=== PATIENT | female | born 1990 | race Caucasian/White ===

== ENCOUNTER 2018-07-24 02:47 | Emergency (ER) | payer SELFPAY ==
[~2018-07-24] VITALS: Ht 152.4 cm; Wt 73.5 kg
[2018-07-24 03:23] LABS: BASOPHILS % (AUTO) 0 % (0-10); EOSINOPHILS # (AUTO) 0.1 10^3/uL (0.0-0.3); EOSINOPHILS % (AUTO) 1 % (0-10); HEMATOCRIT 40 % (35-52); HEMOGLOBIN 13.6 G/DL (11.5-16.0); LYMPHOCYTES # (AUTO) 3.3 X 10^3 (1.0-4.0); LYMPHOCYTES % (AUTO) 33 % (12-44); MEAN CORPUSCULAR HEMOGLOBIN 29 PG (25-34); MEAN CORPUSCULAR HGB CONC 34 G/DL (32-36); MEAN CORPUSCULAR VOLUME 87 FL (80-99); MEAN PLATELET VOLUME 8.6 FL (7.4-10.4); MONOCYTES # (AUTO) 0.7 X 10^3 (0.0-1.0); MONOCYTES % (AUTO) 7 % (0-12); NEUTROPHILS # (AUTO) 5.9 X 10^3 (1.8-7.8); NEUTROPHILS % (AUTO) 59 % (42-75); PLATELET COUNT 370 10^3/uL (130-400); RED CELL DISTRIBUTION WIDTH 12.6 % (10.0-14.5)
[2018-07-24 03:25] LABS: BILIRUBIN,URINE NEGATIVE (NEGATIVE); CLARITY,URINE SLIGHTLY CLOUDY; COLOR,URINE AMBER; GLUCOSE, URINE (UA) NEGATIVE (NEGATIVE); KETONES,URINE 1+ (NEGATIVE); LEUKOCYTE ESTERASE ,URINE 1+ (NEGATIVE); NITRITE,URINE NEGATIVE (NEGATIVE); PH,URINE 6 (5-9); PROTEIN,URINE 3+ (NEGATIVE); UROBILINOGEN,URINE 1 MG/DL (NORMAL)
--- NOTE | 2018-07-24 03:41 | ED GU-Female ---
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 She had a positive test on July 19. She had a transvaginal ultrasound performed yesterday at [facility]. She was told she had a viable intrauterine at about 6 weeks gestational age. She received referrals to physicians for her obstetrical care. The discomfort and cramping has eased. She presents pictures of blood clots in the toilet. She is a [employer] student and uses the [employer]. Allergies and Home Medications Allergies Coded Allergies: No Known Drug Allergies (Unverified , 07/24/18) Patient Home Medication List Home Medication List Reviewed: Yes Review of Systems Review of Systems Constitutional: no symptoms reported EENTM: no symptoms reported Respiratory: no symptoms reported Cardiovascular: no symptoms reported Gastrointestinal: no symptoms reported Genitourinary: see HPI : Yes Musculoskeletal: no symptoms reported Skin: no symptoms reported Psychiatric/Neurological: No Symptoms Reported Endocrine: No Symptoms Reported Hematologic/Lymphatic: No Symptoms Reported Past Bwlzlcm-Lwnamn-Lmisgm Hx Past Med/Social Hx: Reviewed and Corrections made Patient Social History Alcohol Use: Denies Use Recreational Drug Use: No 2nd Hand Smoke Exposure: No Recent Foreign Travel: No Contact w/Someone Who Travel: No Recent Infectious Disease Expo: No Recent Hopitalizations: No Seasonal Allergies Seasonal Allergies: No Past Medical History Surgeries: Yes Ear Surgery Respiratory: No Cardiac: No Neurological: No : Yes Last Menstrual Period: May 28, 2018 Hx : 1 Genitourinary: No Gastrointestinal: No Musculoskeletal: No Endocrine: No HEENT: No Cancer: No Psychosocial: No Integumentary: No Blood Disorders: No Physical Exam Vital Signs Vital Signs - First Documented 07/24/18 03:06 Temp 98.4 Pulse 95 Resp 18 B/P (MAP) 128/90 (103) Capillary Refill : Less Than 3 Seconds Height, Weight, BMI Height: 5'0" Weight: 162lbs. oz. 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, no motor/sensory deficits, alert, normal mood/affect, oriented x 3 Skin: normal color, warm/dry Progress/Results/Core Measures Suspected Sepsis Recent Fever Within 48 Hours: No Infection Criteria Present: Suspected New Infection New/Unexplained Altered Menta: No Sepsis Screen: No Definite Risk SIRS Temperature:98.4 Pulse: 95 Respiratory Rate: 18 Laboratory Tests 07/24/18 03:16: White Blood Count 10.0 Blood Pressure 128 /90 Mean: 103 Laboratory Tests 07/24/18 03:16: Platelet Count 370 Results/Orders Lab Results Laboratory Tests Test 07/24/18 03:16 07/24/18 03:20 Range/Units White Blood Count 10.0 4.3-11.0 10^3/uL Red Blood Count 4.66 4.35-5.85 10^6/uL Hemoglobin 13.6 11.5-16.0 G/DL Hematocrit 40 35-52 % Mean Corpuscular Volume 87 80-99 FL Mean Corpuscular Hemoglobin 29 25-34 PG Mean Corpuscular Hemoglobin Concent 34 32-36 G/DL Red Cell Distribution Width 12.6 10.0-14.5 % Platelet Count 370 130-400 10^3/uL Mean Platelet Volume 8.6 7.4-10.4 FL Neutrophils (%) (Auto) 59 42-75 % Lymphocytes (%) (Auto) 33 12-44 % Monocytes (%) (Auto) 7 0-12 % Eosinophils (%) (Auto) 1 0-10 % Basophils (%) (Auto) 0 0-10 % Neutrophils # (Auto) 5.9 1.8-7.8 X 10^3 Lymphocytes # (Auto) 3.3 1.0-4.0 X 10^3 Monocytes # (Auto) 0.7 0.0-1.0 X 10^3 Eosinophils # (Auto) 0.1 0.0-0.3 10^3/uL Basophils # (Auto) 0.0 0.0-0.1 10^3/uL Human Chorionic Gonadotropin, Quant 8567 H <5 MIU/ML Urine Color MARIELA H Urine Clarity SLIGHTLY CLOUDY Urine pH 6 5-9 Urine Specific [place] 1.025 H 1.016-1.022 Urine Protein 3+ H NEGATIVE Urine Glucose (UA) NEGATIVE NEGATIVE Urine Ketones 1+ H NEGATIVE Urine Nitrite NEGATIVE NEGATIVE Urine Bilirubin NEGATIVE NEGATIVE Urine Urobilinogen 1 NORMAL MG/DL Urine Leukocyte Esterase 1+ H NEGATIVE Urine RBC (Auto) 5+ H NEGATIVE Urine RBC TNTC H /HPF Urine WBC NONE /HPF Urine Squamous Epithelial Cells RARE /HPF Urine Crystals NONE /LPF Urine Bacteria TRACE /HPF Urine Casts NONE /LPF Urine Mucus NEGATIVE /LPF Urine Culture Indicated NO My Orders Orders - GILMA RICH MD Cbc With Automated Diff (07/24/18 03:10) Hcg,Quantitative (07/24/18 03:10) Ua Culture If Indicated (07/24/18 03:10) Abo Rh Type (07/24/18 03:10) Vital Signs/I&O 07/24/18 03:06 Temp 98.4 Pulse 95 Resp 18 B/P (MAP) 128/90 (103) Capillary Refill : Less Than 3 Seconds Blood Pressure Mean: 103 Progress Note : Time: 04:29 Progress Note Labs and hCG level were appropriate. Patient was given an outpatient order form for ultrasound later this morning. Results to be called to me. See discharge instructions. Departure Impression Primary Impression: Vaginal bleeding affecting early Additional Impression: Pelvic cramping Disposition: 01 HOME, SELF-CARE Condition: Improved Departure-Patient Inst. Decision time for Depature: 04:25 Referrals: NO,LOCAL PHYSICIAN (PCP/Family) Primary Care Physician Patient Instructions: Threatened Miscarriage Add. Discharge Instructions: For pain you may take Tylenol (acetaminophen) up to 1000 mg every 6 hours as needed. Return to the hospital at 7:00 for your ultrasound. Bring the ultrasound order with you. Need to establish with an obstetrical provider as soon as possible. Please call today to make an appointment. All discharge instructions reviewed with patient and/or family. Voiced understanding. GILMA RICH MD July 24, 2018 03:41
[2018-07-24 03:59] LABS: BACTERIA,URINE TRACE /HPF; RBC,URINE TNTC /HPF; SQUAMOUS EPITHELIAL CELL,UR RARE /HPF
--- NOTE | 2018-07-24 04:27 | NUR ---
PT TO DISCHARGE HOME, PT HAVING SCANT AMOUNT OF VAGINAL BLEEDING, PT DENIES ANY NEEDS OR C/O AT THIS TIME, PT SHOWS NO S/S OF DISTRESS, VS ASSESSED AND STABLE
[2018-07-24 04:35] VITALS: BP 120/88
== END 2018-07-24 04:37 | disposition home or self-care (01) ==
LOC: ER 02:51
DX: O20.9 Hemorrhage in early pregnancy, unspecified (principal); Z3A.01 Less than 8 weeks gestation of pregnancy
CPT/HCPCS: 36415; 81000; 84702; 85025; 86900; 86901; 99282

== ENCOUNTER → 2018-07-24 | Outpatient (CLI) | payer SELFPAY ==
--- NOTE | 2018-07-24 09:16 | Diagnostic Imaging Report ---
Indication: Vaginal bleeding. There is an intrauterine gestational sac containing a pole. Bulger-rump length measurement is 6 mm consistent with 6 weeks 3 days. heart rate was recorded at 115 beats per minute. However, there is a very large gerri-gestational sac hemorrhage measuring 4.2 x 2.6 x 2.3 cm. The ovaries were not visualized. No adnexal mass or free fluid is seen. Impression: Single live IUP 6 weeks 3 days gestational age with estimated date of confinement sonographically of 03/16/2019. Note is made of a large subchorionic hemorrhage. Dictated by: Dictated on workstation # [id number]
== END ==
LOC: RAD 07:09
PROVIDERS: ATTEND Family Medicine
DX: O20.9 Hemorrhage in early pregnancy, unspecified (principal); Z3A.00 Weeks of gestation of pregnancy not specified
CPT/HCPCS: 76817

== ENCOUNTER → 2019-04-15 | Outpatient (CLI) | payer OTHER ==
--- NOTE | 2019-04-15 16:08 | Diagnostic Imaging Report ---
PROCEDURE: MRI left joint lower extremity without contrast. TECHNIQUE: Multiplanar, multisequence non contrast-enhanced MRI of the left lower extremity was accomplished. INDICATION: Left knee pain. COMPARISON: None. FINDINGS: No acute fracture is seen in the left knee. Alignment appears normal. No significant joint effusion is seen. The articular cartilage in the patellofemoral compartment demonstrates no full-thickness defects. The articular cartilage in the medial and lateral compartments demonstrates no full-thickness defects. The medial and lateral menisci appear intact. There is low signal throughout the coronal STIR sequence. The anterior and posterior cruciate ligaments are intact. The medial collateral ligament and the lateral collateral ligamentous complex are intact. The extensor mechanism is intact. The medial and lateral retinacula are intact. The soft tissues about the left knee demonstrate no acute abnormality. IMPRESSION: 1. No meniscus or ligament tear is seen in the left knee. Dictated by: Dictated on workstation # [id number]
== END ==
LOC: RAD 14:42
PROVIDERS: ATTEND Nurse Practitioner
DX: S83.262A Peripheral tear of lateral meniscus, current injury, left knee, initial encounter (principal); X58.XXXA Exposure to other specified factors, initial encounter
CPT/HCPCS: 73721

== ENCOUNTER → 2019-04-19 | Outpatient (CLI) | payer OTHER ==
[2019-04-19 14:13] LABS: BASOPHILS % (AUTO) 0 % (0-10); EOSINOPHILS # (AUTO) 0.3 10^3/uL (0.0-0.3); EOSINOPHILS % (AUTO) 4 % (0-10); HEMATOCRIT 41 % (35-52); HEMOGLOBIN 13.3 G/DL (11.5-16.0); LYMPHOCYTES % (AUTO) 29 % (12-44); MEAN CORPUSCULAR HEMOGLOBIN 29 PG (25-34); MEAN CORPUSCULAR HGB CONC 32 G/DL (32-36); MEAN CORPUSCULAR VOLUME 91 FL (80-99); MEAN PLATELET VOLUME 8.8 FL (7.4-10.4); MONOCYTES # (AUTO) 0.4 X 10^3 (0.0-1.0); MONOCYTES % (AUTO) 5 % (0-12); NEUTROPHILS # (AUTO) 4.3 X 10^3 (1.8-7.8); NEUTROPHILS % (AUTO) 61 % (42-75); PLATELET COUNT 346 10^3/uL (130-400); RED CELL DISTRIBUTION WIDTH 12.7 % (10.0-14.5)
== END ==
LOC: LAB 13:59
PROVIDERS: ATTEND Nurse Practitioner Family
DX: A38.9 Scarlet fever, uncomplicated (principal); M79.672 Pain in left foot; M25.40 Effusion, unspecified joint
CPT/HCPCS: 36415; 85025; 86060; 86141

== ENCOUNTER 2020-03-19 12:48 | Emergency (ER) | payer OTHER ==
[~2020-03-19] VITALS: Ht 157 cm; Wt 72.0 kg
[2020-03-19] MEDS ORDERED: NS IV 1000 ML 1,000 ML IV SCH (13:15)
[2020-03-19] MEDS ORDERED: KETOROLAC 30 MG/ML VIAL IVP ONE (13:15)
--- NOTE | 2020-03-19 13:16 | ED Abdominal Pain ---
General Chief Complaint: Abdominal/GI Problems Stated Complaint: ABD PAIN Nursing Triage Note: Pt here with R. side abd pain. Seen at [employer] [facility] this am and referred here for further eval. Pt has vomited x 1 today and states she feels like she needs to urinate but can't. Last urination was within an hour. Sepsis Screen: No Definite Risk Source of Information: Patient Exam Limitations: No Limitations History of Present Illness Date Seen by Provider: Mar 19, 2020 Time Seen by Provider: 13:05 Initial Comments [facility] to ER from [employer] [facility] where she presented with right lower quadrant abdominal pain right CVA tenderness along with nausea vomiting and diarrhea that began this morning. No fevers or chills but she does feel the urge to urinate but is unable to do so. Timing/Duration: 4-6 Hours Severity/Quality: Moderate Location: RLQ Radiation: No Radiation Activities at Onset: None Associated Symptoms: Denies Symptoms Allergies and Home Medications Allergies Coded Allergies: ceftriaxone (Verified Allergy, Mild, Rash, 07/24/18) Patient Home Medication List Home Medication List Reviewed: Yes Review of Systems Review of Systems Constitutional: see HPI EENTM: No Symptoms Reported Respiratory: No Symptoms Reported Cardiovascular: No Symptoms Reported Gastrointestinal: See HPI Genitourinary: No Symptoms Reported Musculoskeletal: no symptoms reported Skin: no symptoms reported Psychiatric/Neurological: No Symptoms Reported Endocrine: No Symptoms Reported Hematologic/Lymphatic: No Symptoms Reported Past Tndmipn-Hcikuv-Ttbdsg Hx Patient Social History 2nd Hand Smoke Exposure: No Recent Infectious Disease Expo: No Recent Hopitalizations: No Seasonal Allergies Seasonal Allergies: No Past Medical History Surgeries: Yes Ear Surgery Respiratory: No Cardiac: No Neurological: No : No Last Menstrual Period: Mar 11, 2020 Genitourinary: No Gastrointestinal: No Musculoskeletal: No Endocrine: No HEENT: No Cancer: No Psychosocial: No Integumentary: No Blood Disorders: No Physical Exam Vital Signs Vital Signs - First Documented 03/19/20 13:00 Temp 36.9 Pulse 72 Resp 18 B/P (MAP) 109/75 (86) Pulse Ox 97 O2 Delivery Room Air Capillary Refill : Less Than 3 Seconds Height/Weight/BMI Height: 5'0" Weight: 162lbs. oz. [id number]; 29.00 BMI Method:Actual General Appearance: WD/WN, no apparent distress HEENT: PERRL/EOMI, normal ENT inspection Respiratory: no respiratory distress, no accessory muscle use Cardiovascular: regular rate, rhythm, no murmur Gastrointestinal: normal bowel sounds, soft, tenderness Extremities: normal range of motion, non-tender Neurologic/Psychiatric: alert, normal mood/affect, oriented x 3 Skin: normal color, warm/dry Progress/Results/Core Measures Results/Orders Lab Results Laboratory Tests Test 03/19/20 13:17 Range/Units White Blood Count 8.2 4.3-11.0 10^3/uL Red Blood Count 4.70 3.80-5.11 10^6/uL Hemoglobin 13.6 11.5-16.0 g/dL Hematocrit 43 35-52 % Mean Corpuscular Volume 92 80-99 fL Mean Corpuscular Hemoglobin 29 25-34 pg Mean Corpuscular Hemoglobin Concent 32 32-36 g/dL Red Cell Distribution Width 11.8 10.0-14.5 % Platelet Count 354 130-400 10^3/uL Mean Platelet Volume 8.8 L 9.0-12.2 fL Immature Granulocyte % (Auto) 0 % Neutrophils (%) (Auto) 61 42-75 % Lymphocytes (%) (Auto) 32 12-44 % Monocytes (%) (Auto) 6 0-12 % Eosinophils (%) (Auto) 1 0-10 % Basophils (%) (Auto) 1 0-10 % Neutrophils # (Auto) 5.0 1.8-7.8 10^3/uL Lymphocytes # (Auto) 2.6 1.0-4.0 10^3/uL Monocytes # (Auto) 0.5 0.0-1.0 10^3/uL Eosinophils # (Auto) 0.1 0.0-0.3 10^3/uL Basophils # (Auto) 0.1 0.0-0.1 10^3/uL Immature Granulocyte # (Auto) 0.0 0.0-0.1 10^3/uL Urine Color YELLOW Urine Clarity CLEAR Urine pH 5.5 5-9 Urine Specific [place] >=1.030 1.016-1.022 Urine Protein NEGATIVE NEGATIVE Urine Glucose (UA) NEGATIVE NEGATIVE Urine Ketones TRACE H NEGATIVE Urine Nitrite NEGATIVE NEGATIVE Urine Bilirubin NEGATIVE NEGATIVE Urine Urobilinogen 0.2 < = 1.0 MG/DL Urine Leukocyte Esterase NEGATIVE NEGATIVE Urine RBC (Auto) 1+ H NEGATIVE Urine RBC 0-2 /HPF Urine WBC NONE /HPF Urine Squamous Epithelial Cells 25-50 H /HPF Urine Crystals NONE /LPF Urine Bacteria FEW H /HPF Urine Casts NONE /LPF Urine Mucus SMALL H /LPF Urine Culture Indicated NO Sodium Level 141 135-145 MMOL/L Potassium Level 4.6 3.6-5.0 MMOL/L Chloride Level 106 98-107 MMOL/L Carbon Dioxide Level 26 21-32 MMOL/L Anion Gap 9 5-14 MMOL/L Blood Urea Nitrogen 8 7-18 MG/DL Creatinine 0.91 0.60-1.30 MG/DL Estimat Glomerular Filtration Rate > 60 BUN/Creatinine Ratio 9 Glucose Level 98 70-105 MG/DL Calcium Level 9.4 8.5-10.1 MG/DL Corrected Calcium 9.4 8.5-10.1 MG/DL Total Bilirubin 0.3 0.1-1.0 MG/DL Aspartate Amino Transf (AST/SGOT) 113 H 5-34 U/L Alanine Aminotransferase (ALT/SGPT) 223 H 0-55 U/L Alkaline Phosphatase 82 40-136 U/L Total Protein 7.8 6.4-8.2 GM/DL Albumin 4.0 3.2-4.5 GM/DL Serum Test, Qualitative NEGATIVE NEGATIVE My Orders Orders - LINDA COLON APRN Cbc With Automated Diff (03/19/20 13:11) Comprehensive Metabolic Panel (03/19/20 13:11) Ua Culture If Indicated (03/19/20 13:11) Ed Iv/Invasive Line Start (03/19/20 13:11) Ct Abd/Pelvis Wo(Kidney Stone) (03/19/20 13:11) Hcg,Qualitative Serum (03/19/20 13:11) Ns Iv 1000 Ml (Sodium Chloride 0.9%) (03/19/20 13:15) Ketorolac Injection (Toradol Injection) (03/19/20 13:15) Fentanyl Injection (Sublimaze Injection (03/19/20 14:00) Medications Given in ED Current Medications Medications Dose Ordered Sig/Allyssa Route Start Time Stop Time Status Last Admin Dose Admin Fentanyl Citrate 50 mcg ONCE ONCE IVP 03/19/20 14:00 03/19/20 14:01 DC 03/19/20 13:52 50 MCG Ketorolac Tromethamine 15 mg ONCE ONCE IVP 03/19/20 13:15 03/19/20 13:16 DC 03/19/20 13:24 15 MG Vital Signs/I&O 03/19/20 13:00 Temp 36.9 Pulse 72 Resp 18 B/P (MAP) 109/75 (86) Pulse Ox 97 O2 Delivery Room Air Blood Pressure Mean: 86 Departure Impression Primary Impression: Right ureteral calculus Disposition: 01 HOME, SELF-CARE Condition: Stable Departure-Patient Inst. Decision time for Depature: 14:39 Referrals: [facility] (PCP/Family) Primary Care Physician Patient Instructions: Kidney Stones in Adults Add. Discharge Instructions: 1. Increase fluid intake. Take the Flomax as directed which in theory helps the stone to pass a bit sooner by relaxing the muscles around the ureter. Nausea medication as needed. Pain medication as directed. Return to ER for any fevers or intolerable pain. Follow-up with [employer] [facility] next week. All discharge instructions reviewed with patient and/or family. Voiced understanding. Scripts Ibuprofen (Ibuprofen) 800 Mg Tablet 800 MG PO Q8H PRN for PAIN, #30 TAB 0 Refills Prov: LINDA COLON APRN 03/19/20 Hydrocodone/Acetaminophen (Hydrocodone-Acetamin 5-325 mg) 1 Each Tablet 1 EACH PO Q4H PRN for PAIN-MODERATE (5-7), #14 TAB Prov: LINDA COLON APRN 03/19/20 Tamsulosin HCl (Flomax) 0.4 Mg Cap 0.4 MG PO DAILY, #10 CAP Prov: LINDA COLON APRN 03/19/20 Ondansetron (Ondansetron Odt) 4 Mg Tab.rapdis 4 MG PO Q6H PRN for NAUSEA/VOMITING, #8 TAB 0 Refills Prov: LINDA COLON APRN 03/19/20 Work/School Note: Work Release Form Date Seen in the Emergency Department: Mar 20, 2020 Return to Work: Mar 19, 2020 Copy Copies To 1: CELI POLLARD MD, PETER J APRN Mar 19, 2020 13:16
[2020-03-19 13:24] LABS: BASOPHILS # (AUTO) 0.1 10^3/uL (0.0-0.1); BASOPHILS % (AUTO) 1 % (0-10); EOSINOPHILS # (AUTO) 0.1 10^3/uL (0.0-0.3); EOSINOPHILS % (AUTO) 1 % (0-10); HEMATOCRIT 43 % (35-52); HEMOGLOBIN 13.6 g/dL (11.5-16.0); LYMPHOCYTES # (AUTO) 2.6 10^3/uL (1.0-4.0); LYMPHOCYTES % (AUTO) 32 % (12-44); MEAN CORPUSCULAR HEMOGLOBIN 29 pg (25-34); MEAN CORPUSCULAR HGB CONC 32 g/dL (32-36); MEAN CORPUSCULAR VOLUME 92 fL (80-99); MEAN PLATELET VOLUME 8.8 fL (9.0-12.2); MONOCYTES # (AUTO) 0.5 10^3/uL (0.0-1.0); MONOCYTES % (AUTO) 6 % (0-12); NEUTROPHILS % (AUTO) 61 % (42-75); PLATELET COUNT 354 10^3/uL (130-400); WHITE BLOOD COUNT 8.2 10^3/uL (4.3-11.0)
[2020-03-19 13:25] LABS: BILIRUBIN,URINE NEGATIVE (NEGATIVE); CLARITY,URINE CLEAR; COLOR,URINE YELLOW; GLUCOSE, URINE (UA) NEGATIVE (NEGATIVE); KETONES,URINE TRACE (NEGATIVE); LEUKOCYTE ESTERASE ,URINE NEGATIVE (NEGATIVE); NITRITE,URINE NEGATIVE (NEGATIVE); PH,URINE 5.5 (5-9); PROTEIN,URINE NEGATIVE (NEGATIVE)
[2020-03-19 13:34] LABS: BACTERIA,URINE FEW /HPF; RBC,URINE 0-2 /HPF; SQUAMOUS EPITHELIAL CELL,UR 25-50 /HPF
--- NOTE | 2020-03-19 13:34 | NUR ---
Pt seen at [facility] for same cc and sent here for further workup. Pt c/o R. mid quad pain that radiates to her back. Pt reports n/v/d x 1 today. Pain worsens when standing and reports pain gets better if she "presses" into her right side. Pt also reports feeling like she can't empty her bladder.
[2020-03-19 13:36] LABS: CHLORIDE 106 MMOL/L (98-107); POTASSIUM 4.6 MMOL/L (3.6-5.0); SODIUM 141 MMOL/L (135-145)
[2020-03-19 13:37] LABS: CALCIUM 9.4 MG/DL (8.5-10.1)
[2020-03-19 13:38] LABS: GLUCOSE 98 MG/DL (70-105)
[2020-03-19 13:39] LABS: TOTAL PROTEIN 7.8 GM/DL (6.4-8.2)
[2020-03-19 13:40] LABS: BILIRUBIN,TOTAL 0.3 MG/DL (0.1-1.0); CARBON DIOXIDE 26 MMOL/L (21-32)
[2020-03-19 13:42] LABS: ALKALINE PHOSPHATASE 82 U/L (40-136); CREATININE SERUM 0.91 MG/DL (0.60-1.30); GFR ESTIMATED > 60
[2020-03-19 13:43] LABS: BUN/CREATININE RATIO 9
[2020-03-19 13:45] LABS: ALANINE AMINOTRANSFERASE 223 U/L (0-55)
--- NOTE | 2020-03-19 13:45 | NUR ---
Pt tearful and appears to be in more pain; Arron Niño notified and order received.
[2020-03-19] MEDS ORDERED: fentaNYL INJECTION 100 MCG/2 ML AMP IVP ONE (14:00)
--- NOTE | 2020-03-19 14:06 | NUR ---
Pt to CT by w/c.
--- NOTE | 2020-03-19 14:15 | NUR ---
Pt back from CT.
--- NOTE | 2020-03-19 14:31 | Diagnostic Imaging Report ---
INDICATION: Right-sided flank pain. TECHNIQUE: Multiple contiguous axial images were obtained through the abdomen and pelvis without the use of intravenous contrast. Auto Exposure Controls were utilized during the CT exam to meet ALARA standards for radiation dose reduction. COMPARISON: There is no previous CT for comparison. FINDINGS: Visualized portions of the lung bases are clear. There is no pleural fluid collection. There is no free intraperitoneal air. The liver shows diffuse inhomogeneous patchy low-density change, which may represent fatty change, I do not see a definite focal lesion without contrast. The gallbladder is normal in appearance. The spleen, adrenals, and pancreas are normal. The kidneys show no focal mass. The left kidney shows no stone or hydronephrosis. The right kidney shows moderate hydronephrosis and hydroureter. There is a 3 mm calcification in the right distal ureter near the UVJ. There is an additional right pelvic calcification which may be a phlebolith. Distal ureter is difficult to visualize. There is no sign of bowel obstruction or focal bowel wall thickening. Appendix appears normal. IMPRESSION: 1. There is right hydronephrosis and perinephric edema with hydroureter. There appears to be a 3 mm stone in the right distal ureter near the UVJ, although the ureter is not well defined in the pelvis. There is an additional right-sided calcification in the pelvis which may be a phlebolith. 2. The liver shows inhomogeneous low density which may represent asymmetric fatty change, consider ultrasound or contrast study as clinically warranted. Dictated by: Dictated on workstation # [id number]
[2020-03-19] MEDS ORDERED: ACHD5005 PO (14:43)
[2020-03-19] MEDS ORDERED: TMSL.4C PO (14:43)
[2020-03-19] MEDS ORDERED: ONDA4TAB11 PO (14:43)
[2020-03-19] MEDS ORDERED: IBUP-1780 PO (14:43)
[2020-03-19] MEDS ORDERED: HYDROmorphone 2 MG/ML VIAL (DILAUDID) IV ONE (14:45)
[2020-03-19 14:51] VITALS: BP 108/75
== END 2020-03-19 15:14 | disposition home or self-care (01) ==
LOC: EDUNIT# 12:48 → ER 12:50
DX: N13.2 Hydronephrosis with renal and ureteral calculous obstruction (principal); Z88.1 Allergy status to other antibiotic agents
CPT/HCPCS: 36415; 74176; 80053; 81000; 84703; 85025